=== PATIENT | female | born 1940 | race African-American/Black ===

== ENCOUNTER 2017-05-26 10:44 | Emergency (ER) | payer OTHER ==
[~2017-05-26] VITALS: Ht 165.1 cm; Wt 50.0 kg
[2017-05-26 11:26] LABS: BASOPHILS % 0.8 % (0.0-2.0); EOSINOPHILS % 2.9 % (0.0-5.0); HEMOGLOBIN. 11.1 g/dL (12.0-16.0); LYMPHOCYTES % 34.9 % (20.0-50.0); MEAN CORPUSCULAR HEMOGLOBIN 28.8 pg (28.0-32.0); MEAN CORPUSCULAR VOLUME 88.3 fL (81.0-99.0); MEAN PLATELET VOLUME 8.6 fl (7.4-10.4); MONOCYTES % 4.7 % (2.0-8.0); NEUTROPHILS % 56.7 % (40.0-76.0); PLATELET 246 x1000/uL (130-400); RED BLOOD CELL COUNT 3.85 mill/uL (4.2-5.4)
[2017-05-26 11:33] LABS: PROTHROMBIN TIME 10.9 sec
[2017-05-26 11:39] LABS: AMMONIA 11 uMol/L (<32)
[2017-05-26 11:43] LABS: CARBON DIOXIDE 24 mEq/L (21-32); CHLORIDE 104 mEq/L (98-107); CREATINE KINASE 65 IU/L (26-192); ETHANOL BLOOD < 10 mg/dL; TROPONIN I 0.07 ng/mL (0.00-0.04)
[2017-05-26 12:08] LABS: CLARITY URINE CLOUDY (CLEAR); COLOR URINE YELLOW (YELLOW); GLUCOSE URINE NEGATIVE (NEGATIVE); KETONES URINE TRACE (NEGATIVE); LEUKOCYTE ESTERASE URINE TRACE (NEGATIVE); NITRITE URINE NEGATIVE (NEGATIVE); OCCULT BLOOD URINE TRACE (NEGATIVE); PH URINE 5.5 (4.5-8.0); PROTEIN URINE 1+ (NEGATIVE); SPECIFIC GRAVITY URINE 1.024 (1.005-1.030); UROBILINOGEN URINE 0.2 E.U./dL (0.2-1.0)
[2017-05-26 12:10] LABS: BG BASE EXCESS -4.7 mmol/L (-2.0-2.0); BG DEOXYHEMOGLOBIN 0.9 % (0.0-5.0); BG FRACTION INSPIRED OXYGEN 28; BG METHEMOGLOBIN 0.3 % (0.0-1.5); BG OXYGEN SATURATION 99.1 % (92.0-98.5); BG OXYHEMOGLOBIN 98.8 % (94.0-97.0); BG PCO2 35.8 mmHg (35.0-45.0); BG PH 7.365 (7.350-7.450); BG PO2 160.3 mmHg (75.0-100.0); BG SAMPLE SITE RIGHT RADIAL; BG TOTAL HEMOGLOBIN 11.8 g/dL (12.0-18.0); BG VENT MODE NASAL CANNULA
[2017-05-26 12:22] LABS: *AMPHETAMINES SCREEN URINE NEGATIVE (NEGATIVE); *BARBITURATES SCREEN URINE NEGATIVE (NEGATIVE); *BENZODIAZEPINES SCREEN URINE NEGATIVE (NEGATIVE); *COCAINE SCREEN URINE NEGATIVE (NEGATIVE); CANNABINOID URINE SCREEN NEGATIVE (NEGATIVE); METHADONE URINE SCREEN NEGATIVE (NEGATIVE); OPIATES URINE SCREEN NEGATIVE (NEGATIVE); PHENCYCLIDINE URINE SCREEN NEGATIVE (NEGATIVE)
[2017-05-26] MEDS ORDERED: ACETAMINOPHEN 325MG TABLET PO ONE (16:45)
[2017-05-26 17:39] VITALS: BP 163/111
== END 2017-05-26 17:40 | disposition short-term general hospital (02) ==
LOC: ER 10:44 → CANBEDREQ 05-27 00:30
DX: R55 Syncope and collapse (principal); R41.82 Altered mental status, unspecified; E11.9 Type 2 diabetes mellitus without complications; I10 Essential (primary) hypertension; E78.00 Pure hypercholesterolemia, unspecified; E03.9 Hypothyroidism, unspecified
CPT/HCPCS: 36415; 36600; 51702; 70450; 71010; 80053; 80305; 81001; 82140; 82375; 82550; 82805; 82962; 83605; 83880; 84484; 85025; 85610; 86850; 86900; 86901; 93005; 99291; G0482